=== PATIENT | male | born 1940 | race Caucasian/White ===

== ENCOUNTER → 2020-09-24 | Outpatient (CLI) | payer MEDICARE, OTHER ==
[~2020-09-24] MED LIST: AMLODIPINE BESYL5 MG PO; ASPIRIN EC81 MG PO; CLOPIDOGREL75 MG PO; FUROSEMIDE40 MG PO; HUMALOG MI100 UNIT/1 SQ; HYDROCODON-ACE1 EAC4 PO; K-DUR TAB 20 M20 MEQ PO; LEVOFLOXACIN500 MG PO; LISINOPRIL20 MG PO; METOPROLOL SUC100 MG PO; NITRO-TIME6.5 MG PO; PRAVASTATIN SOD20 MG PO; PRILOSEC OTC20 MG PO; VENTOLIN HFA 66.7 GM INH; ZYRTEC10 MG PO
== END ==
LOC: ECHO 10:00
DX: I50.22 Chronic systolic (congestive) heart failure (principal); I08.1 Rheumatic disorders of both mitral and tricuspid valves
CPT/HCPCS: ECHO; 93306

== ENCOUNTER → 2020-09-30 | Outpatient (CLI) | payer MEDICARE ==
[2020-09-30 15:20] LABS: HEMOGLOBIN 15.2 gm/dl (14.0-17.5); RED BLOOD COUNT 5.02 M/UL (4.20-5.50); WHITE BLOOD COUNT 7.8 K/UL (4.5-11.0)
[2020-09-30 16:35] LABS: BUN/CREATININE RATIO 17 (0-10)
== END ==
LOC: LAB 14:25
PROVIDERS: Internal Medicine Cardiovascular Disease
DX: Z45.02 Encounter for adjustment and management of automatic implantable cardiac defibrillator (principal); I25.5 Ischemic cardiomyopathy; I50.22 Chronic systolic (congestive) heart failure
CPT/HCPCS: 36415; 71046; 80048; 85025

== ENCOUNTER → 2020-10-02 | Outpatient (CLI) | payer MEDICARE | LOC: CATH 07:35 | DX: Z45.02 Encounter for adjustment and management of automatic implantable cardiac defibrillator (principal); I11.0 Hypertensive heart disease with heart failure; I50.22 Chronic systolic (congestive) heart failure; I25.5 Ischemic cardiomyopathy; I25.10 Atherosclerotic heart disease of native coronary artery without angina pectoris; E11.9 Type 2 diabetes mellitus without complications; E78.5 Hyperlipidemia, unspecified; I25.2 Old myocardial infarction; K21.9 Gastro-esophageal reflux disease without esophagitis; E04.9 Nontoxic goiter, unspecified; M19.90 Unspecified osteoarthritis, unspecified site; Z95.5 Presence of coronary angioplasty implant and graft; Z87.891 Personal history of nicotine dependence; Z95.810 Presence of automatic (implantable) cardiac defibrillator; Z79.82 Long term (current) use of aspirin; Z88.5 Allergy status to narcotic agent; Z88.2 Allergy status to sulfonamides; Z79.02 Long term (current) use of antithrombotics/antiplatelets; Z79.4 Long term (current) use of insulin; Z79.899 Other long term (current) drug therapy | CPT/HCPCS: 33240; 93641; 99152; 99153; C1721; J2250; J3010; J3370; J7040; J7050 ==